=== PATIENT | female | born 1975 | race Caucasian/White ===

== ENCOUNTER → 2017-01-10 | Outpatient (CLI) | payer OTHER ==
[~2017-01-10] MED LIST: NO MEDICATIONS
--- NOTE | ~2017-01-10 | US24 ---
[facility] A Service of [facility] RADIOLOGY TEXT RESULTS PATIENT: NAS SALAZAR LOCATION: [facility] : 73 UNIT #: [id number] AGE: [address]: Michael Butler MD SEX: F ORDER DR: [id number] [facility] [address] [place], [place] [address] [id number] O MR#: [id number] Acc #: [id number] NAME: NAS SALAZAR. : 1975 SEX: F STUDY DATE/TIME: 01/10/2017 9:59 UNIT: [facility] ROOM: STUDY DESCRIPTION: US Breast Unilateral Attending Physician: Michael Butler M.D. Referring Physician: Michael Butler M.D. Ordering Physician: Michael Butler M.D. Primary Care Physician: Yaniv Benavides M.D. MEDICAL IMAGING REPORT This report is preliminary unless electronic signature is present EXAM Ultrasound right breast, 01/10 INDICATION Small benign-appearing nodules seen in the upper outer right breast on recent mammogram and confirmed today. FINDINGS For a full report, please see the mammogram report dated 01/10/2017. Patients over the age of 40 are entered into a reminder system with target due date for the next mammogram. A result letter will also be sent to the patient. BIRADS: 3 Probably Benign Finding; Short interval follow-up suggested Dictated by... Roberth Dewey Jr., M.D. THIS IS AN ELECTRONICALLY VERIFIED REPORT Roberth Dewey Jr., M.D. at 01/10/2017 4:38 PM WOOD/ankit TD: 01/10/2017 10:37 JOB #: [id number] MEDICAL IMAGING REPORT COPY
--- NOTE | ~2017-01-10 | MY8 ---
[facility] A Service of [facility] RADIOLOGY TEXT RESULTS PATIENT: NAS SALAZAR LOCATION: [facility] : 73 UNIT #: [id number] AGE: [address]: Michael Butler MD SEX: F ORDER DR: [id number] [facility] [address] [place], [place] [address] [id number] O MR#: [id number] Acc #: [id number] NAME: NAS SALAZAR. : 1975 SEX: F STUDY DATE/TIME: 01/10/2017 9:41 UNIT: [facility] ROOM: STUDY DESCRIPTION: MY Mammogram Dx Dig Rt Attending Physician: Michael Butler M.D. Referring Physician: Michael Butler M.D. Ordering Physician: Michael Butler M.D. Primary Care Physician: Yaniv Benavides M.D. MEDICAL IMAGING REPORT This report is preliminary unless electronic signature is present EXAM Diagnostic right mammogram 01/10 INDICATIONS Small nodules seen in the upper outer right breast on recent baseline screening mammogram. FINDINGS Spot compression right CC and MLO views were obtained in addition to a standard true lateral view. There is a persistent circumscribed benign-appearing 4 mm nodule in the upper outer right breast. There are no associated microcalcifications. Ultrasound was performed of the upper outer quadrant of the right breast. Due to the lesion's small size, could not be identified sonographically. Given the overall benign appearance of this lesion, I would simply recommend a 6-month followup mammogram of the right breast to document expected stability. Findings and recommendations were discussed with the patient at time of her examination today. IMPRESSION Probably benign mammogram. There is a 4 mm circumscribed overall benign-appearing nodule in the upper outer right breast. It is not visible sonographically. 6-month followup mammogram of the right breast is recommended to document stability. Patients over the age of 40 are entered into a reminder system with target due date for the next mammogram. A result letter will also be sent to the patient. BIRADS: 3 - Probably benign. Short term follow up recommended. [facility] A Service of [facility] & [facility] RADIOLOGY TEXT RESULTS PATIENT: NAS SALAZAR LOCATION: [facility] : 73 UNIT #: [id number] AGE: [address]: Michael Butler MD SEX: F ORDER DR: Dictated by... Roberth Dewey Jr., M.D. THIS IS AN ELECTRONICALLY VERIFIED REPORT Roberth Dewey Jr., M.D. at 01/10/2017 4:38 PM WOOD/michael TD: 01/10/2017 10:34 JOB #: [id number] MEDICAL IMAGING REPORT COPY
== END | disposition home or self-care (01) ==
LOC: CMAM 09:10
DX: R92.8 Other abnormal and inconclusive findings on diagnostic imaging of breast (principal); N63 Unspecified lump in breast
CPT/HCPCS: 76641; G0202; G0206

== ENCOUNTER → 2017-02-28 | Outpatient (CLI) | payer OTHER ==
[2017-02-28 09:54] LABS: BASOPHIL# 0.1 X10e3 (0-0.3); BASOPHIL% 0.9 % (0-2.5); EOSINOPHIL# 0.5 X10e3 (0-0.7); EOSINOPHIL% 4.9 % (0.0-7.0); HEMATOCRIT 40.6 % (35.0-45.0); HEMOGLOBIN 13.3 gm/dL (12.0-16.0); LYMPHOCYTE# 2.4 X10e3 (1.0-3.5); LYMPHOCYTE% 22.5 % (17.0-45.0); MEAN CORPUSCULAR HEMOGLOBIN 28.9 PG (28-34); MEAN CORPUSCULAR HGB CONC 32.8 g/dL (30-36); MONOCYTE# 0.8 X10e3 (0-1.0); MONOCYTE% 7.5 % (3.0-12.0); NEUTROPHIL# 6.9 X10e3 (1.5-7.1); NEUTROPHIL% 64.2 % (40-75); PLATELET COUNT 397 X10e3 (140-420); RED BLOOD COUNT 4.61 X10e (3.90-5.30); RED CELL DISTRIBUTION WIDTH 14.6 % (11.0-15.5); WHITE BLOOD COUNT 10.8 X10e3 (4.0-10.5)
[2017-02-28 09:55] LABS: DIFF IND NO
[2017-02-28 10:04] LABS: PROTHROMBIN TIME (PATIENT) 11.2 SECONDS (9.5-12.4)
[2017-02-28 10:12] LABS: BUN/CREATININE RATIO 14.28; CALCIUM SERUM 9.1 mg/dL (8.4-10.2); CREATININE SERUM 0.7 mg/dL (0.6-1.4); GLOM FILT RATE Estimated 106.9 mL/min (>60); PARTIAL THROMBOPLASTIN TIME 26.6 SECONDS (25.6-38.1); POTASSIUM 4.5 mmol/L (3.5-5.1)
== END | disposition home or self-care (01) ==
LOC: SLAB 09:37
PROVIDERS: Internal Medicine Interventional Cardiology
DX: Z01.810 Encounter for preprocedural cardiovascular examination (principal); R07.2 Precordial pain; R00.2 Palpitations
CPT/HCPCS: 36415; 80048; 85025; 85610; 85730